=== PATIENT | female | born 1945 | race Caucasian/White ===

== ENCOUNTER 2016-09-05 12:43 | Inpatient (IN) | payer MEDICARE ==
[~2016-09-05] VITALS: Ht 160 cm; Wt 70.5 kg
[2016-09-05 12:46] VITALS: BP 135/75; PULSE 108; RESP 16; TEMP 97.6; O2SAT 93
[2016-09-05] MEDS ORDERED: OXYC-392 PO (12:51)
[2016-09-05] MEDS ORDERED: GABA300C5 PO (12:51)
--- NOTE | 2016-09-05 13:04 | PD ---
HPI Chief Complaint: Back/ Neck Pain or Injury Time Seen by Provider: 13:04 Travel History International Travel<30 days: No Contact w/Intl Traveler<30days: No Traveled to known affect area: No History of Present Illness HPI 71-year-old female coming in with left-sided lower back pain with sciatic symptoms in the left hip and thigh. Patient had a recent MRI showing disc herniation at the L2 level, as well as spinal stenosis throughout the spine. Patient was sent in by Dr. Dee or admission, and possible surgical intervention. Patient states the pain started approximately a week ago. She had her MRI at that time, but has been unable to be seen, and pain is intractable. Patient states she has not had a bowel movement since last Friday. Patient is been taking oxycodone, and gabapentin for pain. Patient denies any other significant medical history. Patient is allergic to lisinopril and sulfa. PFSH Past Medical History Cancer: No Diabetes: No Glaucoma: No Hepatitis: No Hiatal Hernia: No Hypertension: No Thyroid Disease: No Past Surgical History Gynecologic Surgery: Yes (D&C) Social History Alcohol Use: Yes (RARELY) Tobacco Use: No Allergies-Medications (Allergen,Severity, Reaction): Coded Allergies: Sulfa (Verified Allergy, Severe, can't remember, 09/15/09) Lisinopril (Verified Allergy, Unknown, Nausea, Headache, 09/27/15) Reported Meds & Prescriptions Reported Meds & Active Scripts Active Reported Oxycodone (Oxycodone HCl) 5 Mg Tab 5 Mg PO Q4H PRN Gabapentin 300 Mg Cap 300 Mg PO HS Review of Systems Except as stated in HPI: all other systems reviewed are Neg General / Constitutional: No: Fever Eyes: No: Visual changes HENT: No: Headaches Cardiovascular: No: Chest Pain or Discomfort Respiratory: No: Shortness of Breath Gastrointestinal: No: Abdominal Pain Genitourinary: No: Dysuria Musculoskeletal: No: Pain Skin: No Rash Neurologic: No: Weakness Psychiatric: No: Depression Endocrine: No: Polydipsia Hematologic/Lymphatic: No: Easy Bruising Physical Exam Narrative GENERAL: Patient appears in pain but medically stable. SKIN: Warm and dry. Mild pallor. Poor turgor with tenting. HEAD: Atraumatic. Normocephalic. EYES: Pupils equal and round. No scleral icterus. No injection or drainage. ENT: No nasal bleeding or discharge. Mucous membranes pink and dry. Pharynx is normal. Airway is patent.. NECK: Trachea midline. No JVD. Supple nontender. CARDIOVASCULAR: Regular rate and rhythm. RESPIRATORY: No accessory muscle use. Clear to auscultation. Breath sounds equal bilaterally. MUSCULOSKELETAL: Extremities without clubbing, cyanosis, or edema. No obvious deformities. Patient has negative straight leg raise pain on the right and left. Patient has pain with palpation along the left paraspinous and lumbar spine with pain into the sciatic notch. Patient has normal strong dorsi and plantar flexion bilaterally. Deep tendon reflexes are 2+ and equal in the patellar and Achilles tendons. NEUROLOGICAL: Awake and alert. No obvious cranial nerve deficits. Motor grossly within normal limits. Five out of 5 muscle strength in the arms and legs. Normal speech. PSYCHIATRIC: Appropriate mood and affect; insight and judgment normal. Data Data Last Documented VS Vital Signs Date Time Temp Pulse Resp B/P Pulse Ox O2 Delivery O2 Flow Rate FiO2 09/05/16 12:46 97.6 108 16 135/75 93 Room Air Orders Electrocardiogram (09/05/16 13:09) Complete Blood Count With Diff (09/05/16 13:09) Comprehensive Metabolic Panel (09/05/16 13:09) Prothrombin Time / Inr (Pt) (09/05/16 13:09) Act Partial Throm Time (Ptt) (09/05/16 13:09) Chest, Single Ap (09/05/16 13:09) Iv Access Insert/Monitor (09/05/16 13:09) Ecg Monitoring (09/05/16 13:09) Oximetry (09/05/16 13:09) Hydromorphone Pf Inj (Dilaudid Pf Inj) (09/05/16 13:15) Sodium Chlor 0.9% 1000 Ml Inj (Ns 1000 M (09/05/16 13:15) MDM Medical Decision Making Medical Screen Exam Complete: Yes Emergency Medical Condition: Yes Differential Diagnosis Disc herniation. Sciatica. Intractable back pain. Narrative Course Patient is medically stable at time of exam. Labs ordered including CBC, CMP, PT PTT and INR, and patient is made nothing by mouth. Chest x-ray and EKG are ordered. IV access is obtained patient is given 1 mg Dilaudid IV as well as 4 mg Zofran IV. Patient is given 1000 mL's normal saline bolus. 1310 hrs. Call was placed to Dr. Dee to discuss the patient. 1320 hrs., Dr. Dee was in to see the patient. [address] discussed with Dr. Dee, who would like the patient admitted to observation. Patient does not need to be nothing by mouth at this time. Dr. Dee is going to order a repeat MRI, and the consult on the patient for possible neurosurgery. 1330 hrs. call was placed to the hospitalist for admission. 1335 hrs. patient is discussed with Dr. Doherty who will admit the patient to observation. Diagnosis Primary Impression: Left-sided low back pain with left-sided sciatica Qualified Code: M54.42 - Acute left-sided low back pain with left-sided sciatica Admitting Information Admitting Physician Requests: Observation Condition: Stable David Almonte Sep 05, 2016 13:04 David Almonte Sep 05, 2016 13:04
[2016-09-05] MEDS ORDERED: HYDROmorphone HCL PF 1 MG/ML VIAL IV PUSH ONE (13:15)
[2016-09-05] MEDS ORDERED: SODIUM CHLOR 0.9% 1000 ML INJ 1,000 ML IV ONE (13:15)
--- NOTE | 2016-09-05 13:46 | RADRPT ---
EXAM DATE/TIME: 09/05/2016 13:09 [facility] COMPARISON: No previous studies available for comparison. INDICATIONS : Short of breath. MEDICAL HISTORY : None. SURGICAL HISTORY : None. ENCOUNTER: Initial ACUITY: 2 days PAIN SCORE: 8/10 LOCATION: lower chest area. FINDINGS: Portable AP view of the chest demonstrates a normal-sized cardiac silhouette. No effusion, consolidat ion, or pneumothorax is visualized. The bones and soft tissues demonstrate no acute abnormality. CONCLUSION: No acute cardiopulmonary abnormality is identified. Galen Lance MD on September 05, 2016 at 13:45 Board Certified Radiologist. This report was verified electronically.
--- NOTE | 2016-09-05 13:59 | HHI.HP ---
HPI Service [facility] Hospitalists Primary Care Physician Tye Stokes M.D. Admission Diagnosis Left Sciatica/Disc Herniation Chief Complaint: intractable back pain with radidation down the left leg Travel History International Travel<30 Days: No Contact w/Intl Traveler <30 Da: No Traveled to Known Affected Are: No History of Present Illness Ms. Rios is a pleasant 71 y/o WF with GERD who presented to the ER at [facility] [place] with complaints of intractable back pain with radiculopathy down the left leg x 8 days. This began after she lifted her leg to wash her knee in the shower. She was seen by her PCP, Dr. Tye Stokes, as an outpt and was tried on opioid analgesics ([place]), muscle relaxant (Flexeril), and rest without improvement. Medications were changed on 08/30/16 to Oxycodone and Gabapentin and sent for an MRI of the lumbar spine (08/30/16) which reported multilevel spondylosis and degenerative disk disease most severe at the L2 level where a large approximately 1.4 x 1.4cm sequestrated disk fragment is present lying posterior to the left side of the vertebral body in the left paracentral posterolateral left lateral recess region and is suggested to impact the left L2 nerve root int he lateral recess. Patient was sent to Dr. Dee who reportedly sent the pt to the ED for admission and possible surgical intervention. Patient states she has not had a bowel movement since last Friday, 8 days ago. Patient denies any other significant medical history. Review of Systems Constitutional: DENIES: Fever, Chills Eyes: DENIES: Vision loss Ears, nose, mouth, throat: DENIES: Hearing loss Respiratory: DENIES: Cough, Shortness of breath Cardiovascular: DENIES: Chest pain, Palpitations Gastrointestinal: COMPLAINS OF: Constipation, GERD, DENIES: Nausea, Vomiting Genitourinary: DENIES: Urinary frequency, Urinary incontinence Musculoskeletal: COMPLAINS OF: Back pain Neurologic: DENIES: Headache Past Family Social History Past Medical History GERD Denies any CAD/NE, HTN, hyperlipidemia, diabetes, thyroid problems Past Surgical History Arthroscopic right knee surgery D&C Cataract surgery Reported Medications Oxycodone (Oxycodone HCl) 5 Mg Tab 5 Mg PO Q4H PRN Gabapentin 300 Mg Cap 300 Mg PO HS Allergies: Coded Allergies: Sulfa (Verified Allergy, Severe, can't remember, 09/05/16) Lisinopril (Verified Allergy, Unknown, Nausea, Headache, 09/05/16) Family History Noncontributory Social History Denies any alcohol, tobacco or illicit drug use Physical Exam Vital Signs Vital Signs Date Time Temp Pulse Resp B/P Pulse Ox O2 Delivery O2 Flow Rate FiO2 09/05/16 12:46 97.6 108 16 135/75 93 Room Air Physical Exam GENERAL: This is a well-nourished, well-developed patient, in no apparent distress. HEENT: Atraumatic. Normocephalic. No temporal or scalp tenderness. No scleral icterus. Airway patent. NECK: Trachea midline, supple, nontender. CARDIO: Regular. RESP: CTA bilaterally. No wheezes, rales, or rhonchi. ABD: +BS, soft, non-tender, nondistended. EXT: Extremities without clubbing, cyanosis, or edema. Patient has pain in the left thigh to the knee with straight leg raise of the right and left leg. Patient has pain with palpation along the left paraspinous and lumbar spine with pain into the sciatic notch. Patient has normal strong dorsi and plantar flexion bilaterally. Deep tendon reflexes are 2+ and equal in the patellar and Achilles tendons. NEURO: Awake and alert. Motor and sensory grossly within normal limits. Normal speech. Imaging Last Impressions Chest X-Ray 09/05/16 1309 Signed Impressions: Service Date/Time: August 13:09 - CONCLUSION: No acute cardiopulmonary abnormality is identified. Galen Lance MD Septic Shock Reassessment Heart: Regular rate and rhythm Lungs: Clear Skin: Warm Peripheral Pulses: Bounding Right Radial Bounding Left Radial Bounding Right Popliteal Bounding Left Popliteal Bounding Right Dorsalis Pedis Bounding Left Dorsalis Pedis Bounding Right Posterior Tibial Bounding Left Posterior Tibial Capillary Refill: <2 seconds Assessment and Plan Problem List: (1) Intractable back pain Status: Acute Plan: - Pt admitted to the ED on 09/05/16 with intractable back pain with radiculopathy down the left leg x 8 days. This began after she lifted her leg to wash her knee in the shower. - Pt did note have improvement on [place], Flexeril, Oxycodone or Gabapentin - Outpt MRI of the lumbar spine (08/30/16) --> multilevel spondylosis and degenerative disk disease most severe at the L2 level where a large approximately 1.4 x 1.4cm sequestrated disk fragment is present lying posterior to the left side of the vertebral body in the left paracentral posterolateral left lateral recess region and is suggested to impact the left L2 nerve root int he lateral recess. - Patient was sent to Dr. Dee who reportedly sent the pt to the ED for admission and possible surgical intervention. - Dr. Dee has seen the pt and is planned to review the MRI and decide about surgical intervention. - Pt has also been constipated and has not had a bowel movement since last Friday, 8 days ago. - IVF - Pain control PRN, [place] 10/325 and Dilaudid IV - Soma TID - KUB now - Liquid diet and NPO after MN - Check CBC, BMP, PT/INR - Antiemetics PRN - PPI - DVT prophylaxis with SCDs (2) Radiculopathy, lumbar region Status: Acute Plan: - See above. (3) Constipation Status: Acute Plan: - Likely related to opioids and decreased mobility - Check KUB - Stool softeners and may need laxatives based on KUB results. (4) GERD (gastroesophageal reflux disease) Status: Chronic Plan: - PPI Assessment and Plan Patient examined. Assessment and plan formulated with Veronika Joiner PA-C. I agree with the above. L2 disc herniation with left lower ext radiculopathy and severe pain. discussed with dr Dee prn norco, soma, dilaudid ivf and npo after nm check kub. bowel regimen. Physician Certification 2 Midnight Certification Type: Admission for Inpatient Services Order for Inpatient Services The services are ordered in accordance with Medicare regulations or non- Medicare payer requirements, as applicable. In the case of services not specified as inpatient-only, they are appropriately provided as inpatient services in accordance with the 2-midnight benchmark. Estimated LOS (days): 3 3 days is the estimated time the patient will need to remain in the hospital, assuming treatment plan goals are met and no additional complications. Post-Hospital Plan: Not yet determined Veronika Joiner Sep 05, 2016 13:59 Elliot Doherty MD Sep 05, 2016 16:48
[2016-09-05] MEDS ORDERED: ceFAZolin 2 GM PREMIX 50 ML IV ONE (14:00)
[2016-09-05] MEDS ORDERED: ACETAMINOPHEN/HYDROcodone 325 MG/10 MG TAB PO PRN (14:00)
[2016-09-05] MEDS: SODIUM CHLOR 0.9% 1000 ML INJ 1,000 ML IV SCH ×5 (14:00→23:53)
[2016-09-05] MEDS ORDERED: ACETAMINOPHEN 325 MG TAB PO PRN (14:00)
[2016-09-05] MEDS ORDERED: ONDANSETRON HCL 4 MG/2 ML VIAL IV PRN (14:00)
[2016-09-05] MEDS ORDERED: HYDROmorphone HCL PF 1 MG/ML VIAL IV PUSH PRN (14:00)
[2016-09-05] MEDS ORDERED: VANCOMYCIN INJ 1,000 MG in SODIUM CHLOR 0.9% 250 ML INJ 250 ML IV ONE (14:00)
[2016-09-05 14:23] LABS: AUTOMATED NEUTROPHIL # 8.5 TH/MM3 (1.8-7.7); BASOPHIL # 0.1 TH/MM3 (0-0.2); BASOPHIL % 0.6 % (0.0-2.0); EOSINOPHIL # 0.3 TH/MM3 (0-0.4); EOSINOPHIL % 2.2 % (0.0-4.0); HEMATOCRIT 41.6 % (35.0-46.0); HEMO FLAGS DIFF FINAL; LYMPH % 26.2 % (9.0-44.0); LYMPHOCYTE # 3.6 TH/MM3 (1.0-4.8); MEAN CELL VOLUME 89.3 FL (80.0-100.0); MEAN CORPUSCULAR HEMOGLOBIN 30.6 PG (27.0-34.0); MEAN CORPUSCULAR HGB CONC 34.3 % (32.0-36.0); MONO % 9.7 % (0.0-8.0); NEUT % 61.3 % (16.0-70.0); PLATELET COUNT 178 TH/MM3 (150-450); RED BLOOD COUNT 4.66 MIL/MM3 (4.00-5.30); RED CELL DISTRIBUTION WIDTH 12.5 % (11.6-17.2); WHITE BLOOD COUNT 13.8 TH/MM3 (4.0-11.0)
[2016-09-05 14:32] LABS: APTT (PATIENT) 25.5 SEC (24.3-30.1)
--- NOTE | 2016-09-05 14:37 | RADRPT ---
EXAM DATE/TIME: 09/05/2016 14:27 [facility] COMPARISON: CHEST SINGLE AP, September 05, 2016, 13:09. INDICATIONS : Abdomen pain. MEDICAL HISTORY : None. SURGICAL HISTORY : None. ENCOUNTER: Initial ACUITY: 1 week PAIN SCORE: 9/10 LOCATION: Bilateral lower back. FINDINGS: Supine view of the abdomen was performed. The abdominal bowel gas pattern is normal. Multiple gallst ones are identified within the right upper quadrant. There is moderate stool burden noted. The osseou s structures are unremarkable. CONCLUSION: Cholelithiasis. Moderate stool burden. Otherwise unremarkable exam. Carmen Wayne MD on September 05, 2016 at 14:35 Board Certified Radiologist. This report was verified electronically.
[2016-09-05] MEDS: DOCUSATE SODIUM 100 MG CAP PO SCH ×2 (14:45→20:56)
[2016-09-05 14:46] VITALS: BP 145/70; PULSE 93; RESP 16; O2SAT 95
--- NOTE | 2016-09-05 14:47 | PD.CONS ---
[facility] Service Neurosurgery Consult Requested By [facility] Reason for Consult Intractable back pain with left radiculopathy Primary Care Physician Tye stokes History of Present Illness This is a 71 y/o female with GERD who presented to [facility] with intractable back pain with left radiculopathy down the left leg, progressively worse for 8 days. Pain began after she lifted her leg to wash her knee in the shower. She was seen by her PCP, Dr. Tye Stokes, was placed on analgesics ([place]), muscle relaxant (Flexeril), and rest without improvement. Her pain was getting worse. Her medications were changed on 08/30/16 to Oxycodone and Gabapentin and sent for an MRI of the lumbar spine (08/30/16) which reported multilevel spondylosis and degenerative disk disease with a large approximately 1.4 x 1.4cm sequestrated disk fragment at L2-3compressing the left L2 nerve root int he lateral recess. She has not had a bowel movement since last Friday, 8 days ago. Reports tingling and numbness, unable to ambulate due to her severe pain. Intermittent urinary incontinence. NeuroSurgical consultation was requested Review of Systems Constitutional: DENIES: Fever, Chills Eyes: DENIES: Vision loss Ears, nose, mouth, throat: DENIES: Hearing loss Respiratory: DENIES: Cough, Shortness of breath Cardiovascular: DENIES: Chest pain, Palpitations Gastrointestinal: COMPLAINS OF: Constipation, GERD, DENIES: Nausea, Vomiting Genitourinary: DENIES: Urinary frequency, Urinary incontinence Musculoskeletal: COMPLAINS OF: Back pain Neurologic: DENIES: Headache Past Family Social History Allergies: Coded Allergies: Sulfa (Verified Allergy, Severe, can't remember, 09/05/16) Lisinopril (Verified Allergy, Unknown, Nausea, Headache, 09/05/16) Past Medical History GERD Denies any CAD/DE, HTN, hyperlipidemia, diabetes, thyroid problems Past Surgical History Arthroscopic right knee surgery D&C Cataract surgery Reported Medications Oxycodone (Oxycodone HCl) 5 Mg Tab 5 Mg PO Q4H PRN Gabapentin 300 Mg Cap 300 Mg PO HS Active Ordered Medications Current Medications Hydromorphone HCl 1 mg 1 mg ONCE ONCE IV PUSH ; Start 09/05/16 at 13:15; Stop 09/05/16 at 13:16; Status DC Sodium Chloride (NS 1000 ml Inj) 1,000 ml @ 999 mls/hr BOLUS ONCE IV ; Start 09/05/16 at 13:15; Stop 09/05/16 at 14:15; Status DC Hydromorphone HCl 1 mg 1 mg Q2HR PRN IV PUSH p; Start 09/05/16 at 14:00; Stop 09/05/16 at 14:01; Status DC Sodium Chloride 1,000 ml @ 100 mls/hr Q10H IV ; Start 09/05/16 at 13:53 Cefazolin Sodium/ Dextrose 50 ml @ 150 mls/hr ONCE ONCE IV ; Start 09/05/16 at 14:00; Stop 09/05/16 at 14:19; Status DC Vancomycin HCl/ Sodium Chloride (Vancomycin Inj/ NS 250 ml Inj) 250 ml @ 250 mls/hr ONCE ONCE IV ; Start 09/05/16 at 14:00; Stop 09/05/16 at 14:59 Chlorhexidine Gluconate (Hibiclens 4% Top Soln) 1 applic HS TOP ; Start at 21:00; Stop 09/06/16 at 21:01 Hydromorphone HCl (Dilaudid Pf Inj) 1 mg Q2HR PRN IV PUSH pain 7-10; Start 08/10 at 14:00 Acetaminophen/ Hydrocodone Bitart ([place] 10-325 Mg) 1 tab Q4H PRN PO pain 3-6; Start 09/05/16 at 14:00 Docusate Sodium 100 mg 100 mg BID PO ; Start 09/05/16 at 14:00 Sodium Chloride (NS 1000 ml Inj) 1,000 ml @ 84 mls/hr [id number] IV ; Start at 14:00 Acetaminophen (Tylenol) 650 mg Q4H PRN PO fever ; Start 09/05/16 at 14:00 Ondansetron HCl (Zofran Inj) 4 mg Q6H PRN IV nausea; Start 09/05/16 at 14:00 Carisoprodol (Soma) 350 mg Q8HR PO ; Start 09/05/16 at 15:00 Family History Noncontributory Social History Denies any alcohol, tobacco or illicit drug use Physical Exam Vital Signs Vital Signs Date Time Temp Pulse Resp B/P Pulse Ox O2 Delivery O2 Flow Rate FiO2 09/05/16 12:46 97.6 108 16 135/75 93 Room Air Physical Exam MS Rios is alert, awake and oriented to time, place and person. Speech is fluent. Higher cognitive functions are normal. Cranial nerve examination demonstrates the pupils to be equal, round, and reactive to light. Extra-ocular movements are intact. Facial motor and sensory function are normal and symmetrical. Gross hearing is intact, bilaterally. The uvula is midline and elevates symmetrically with the soft palate. Sternocleidomastoid and trapezius muscles have normal and symmetrical strength. Other cranial nerves are intact. Neck is soft and supple. Cervical spine has a full range of motion in anterior flexion, extension, lateral bending, and rotation without pain. There is no tenderness to palpation to the spinous processes or paraspinal muscles. Muscle testing reveals normal bulk and tone overall without rigidity, spasticity , fasciculations, or atrophy. Muscle strength is 5/5 in all muscle groups of both upper extremities including deltoid, biceps, triceps, brachioradialis, wrist extension and system safety engineer. In the lower extremities, strength is 3/5 in iliopsoas , 4/5 quadriceps, 5/5 hamstrings, plantar flexion, dorsiflexion, and extensor hallicus longus with give away due to pain. Sensory examination is intact to light touch and sharp/dull discrimination in both upper extremities, and decreased in left L3, L4 dermatome Deep tendon reflexes are 2+ and symmetrical in the biceps, triceps, and brachioradialis, bilaterally, in the upper extremities. In the lower extremities , the patellar and Achilles are 2+, bilaterally. There is a bilateral plantar flexion response. Hoffmanns sign is negative. There is no clonus or other abnormal reflexes noted. Cerebellar examination is intact to [id number] test, rapid rhythmic alternating motion. There is no dysmetria, dysdiadochokinesia, truncal ataxia, or tremor. Laboratory Laboratory Tests Test 09/05/16 14:10 White Blood Count 13.8 Red Blood Count 4.66 Hemoglobin 14.3 Hematocrit 41.6 Mean Corpuscular Volume 89.3 Mean Corpuscular Hemoglobin 30.6 Mean Corpuscular Hemoglobin 34.3 Concent Red Cell Distribution Width 12.5 Platelet Count 178 Mean Platelet Volume 6.9 Neutrophils (%) (Auto) 61.3 Lymphocytes (%) (Auto) 26.2 Monocytes (%) (Auto) 9.7 Eosinophils (%) (Auto) 2.2 Basophils (%) (Auto) 0.6 Neutrophils # (Auto) 8.5 Lymphocytes # (Auto) 3.6 Monocytes # (Auto) 1.3 Eosinophils # (Auto) 0.3 Basophils # (Auto) 0.1 CBC Comment DIFF FINAL Differential Comment Prothrombin Time 11.0 Prothromb Time International 1.0 Ratio Activated Partial 25.5 Thromboplast Time Result Diagram: 09/05/16 1410 Imaging Last Impressions Chest X-Ray 09/05/16 1309 Signed Impressions: Service Date/Time: August 13:09 - CONCLUSION: No acute cardiopulmonary abnormality is identified. Galen Lance MD Attending Statement Neuro. I have reviewed her clinical and radiological findings. Start neuro checks in a serial fashion.I have discussed the alternative methods of treatment including continuing conservative management, pain management by an interventional crayon painter, or a surgical decompression as a last resort. She failed to improve with conservative treatment and given the severity of her pain and severity of the neural compression, she is unlike to respond favorably to pain management. I have offered her the possibility of a referral to an interventional pain specialist, versus a surgical decompression via a left L2-3 hemilaminectomy and microdiscectomy. In my opinion, a surgical decompression is reasonable and medically indicated as this minimally invasive procedure can produce significant relief of his pain. Using the patients radiologic studies, anatomical model(s), and hand-drawn diagrams, we have discussed the details including the [id number] procedure, its indications, alternatives, risks, and potential complications. Risks and potential complications include, but are not limited to, infection, blood loss, CSF leak, partial or complete loss of sight in one or both eyes, paresis, paralysis, permanent pain, hoarseness or difficulty swallowing, loss of bowel or bladder function, complications from anesthesia, blood clot, stroke, myocardial infarction, or even . I adviced Ms Rios that before reaching a decision in regards to surgery, she should consider the alternatives, including the possibility of no treatment. Respiratory. Aggressive pulmonary toilette, nasotracheal suction, and breathing treatments with nebulizers. PT evaluation Nutrition. NPO Renal. monitor closely urine output, BUN and creatinine Endocrine. Monitor serial Acu checks and SSI as needed in detail ID monitor for signs of infection Protonix for stress ulcer prophylaxis Maxi hosjaden and SCD's for DVT prophylaxis Heber Dee MD Sep 05, 2016 14:47
[2016-09-05 14:55] LABS: ALKALINE PHOSPHATASE 74 U/L (45-117); ALT (GPT) 33 U/L (10-53); ANION GAP 7 MEQ/L (5-15); AST (GOT) 31 U/L (15-37); BICARBONATE 28.8 MEQ/L (21.0-32.0); BLOOD UREA NITROGEN 17 MG/DL (7-18); CHLORIDE 101 MEQ/L (98-107); GLOMERULAR FILTRATION RATE 76 ML/MIN (>89); SODIUM (NA) 137 MEQ/L (136-145); TOTAL BILIRUBIN ADULT 1.2 MG/DL (0.2-1.0)
[2016-09-05] MEDS: CARISOPRODOL 350 MG TAB PO SCH ×2 (15:00→20:57)
[2016-09-05] MEDS ORDERED: PANTOPRAZOLE SODIUM 40 MG VIAL IV PUSH SCH (15:00)
[2016-09-05 15:11] LABS: POTASSIUM 4.1 MEQ/L (3.5-5.1)
--- NOTE | 2016-09-05 15:49 | RADRPT ---
EXAM DATE/TIME: 09/05/2016 15:13 [facility] COMPARISON: No previous studies available for comparison. INDICATIONS : Pain. MEDICAL HISTORY : None. SURGICAL HISTORY : Right knee. Cataracts. ENCOUNTER: Subsequent ACUITY: 1 week PAIN SCORE: 8/10 LOCATION: Lower back. TECHNIQUE: Multiplanar multisequence MRI of the lumbar spine was performed without contrast. FINDINGS: The most caudal appearing lumbar vertebra is numbered as L5. A the lumbar spine demonstrates degenerative disc changes seen most significantly at the level of L2/ L3 where there is significant disc space narrowing, posterior broad-based disc protrusion and grade 1 retrolisthesis of L2 on L3. Also seen at this level is an ovoid mass identified within the posterior left spinal canal measuring 1.6 cm craniocaudally by 1.0 cm anterior posterior right 7 mm transverse ly. This mass is closely adherent to the adjacent vertebral body without evidence of osseous destruct ion and abuts but does not occlude the left neuroforamina. The mass appears epicentered adjacent to t he L2 basivertebral veins. The mass displaces the adjacent spinal cord to the right.. CONCLUSION: Degenerative disc changes seen at the level of L2/L3 and adjacent posterior extradura l mass just posterior and closely adherent to the L2 vertebral body. Given the adjacent degenerative disc changes this may represent an area of focal extruded disc versus possible epidural hematoma or s olid .Consider further evaluation of the lumbar spine with contrast to evaluate for mass enhancement. Carmen Wayne MD on September 05, 2016 at 15:39 Board Certified Radiologist. This report was verified electronically.
[2016-09-05 16:11] VITALS: BP 181/76; PULSE 89; RESP 18; TEMP 97.3; O2SAT 94
[2016-09-05] MEDS: HYDROmorphone HCL PF 1 MG/ML VIAL IV PUSH PRN ×3 (16:18→23:03)
[2016-09-05] MEDS ORDERED: cloNIDine HCL 0.1 MG TAB PO PRN (17:00)
[2016-09-05] MEDS ORDERED: LACTULOSE SYRUP 20 GM/30 ML CUP PO ONE (17:00)
[2016-09-05] MEDS: LACTULOSE SYRUP 20 GM/30 ML CUP PO SCH ×2 (17:34→20:44)
[2016-09-05 19:32] VITALS: BP 185/80; PULSE 98; RESP 18; TEMP 98; O2SAT 93
[2016-09-05] MEDS: CHLORHEXIDINE GLUCONATE 4% SOLN 120 ML BTL TOP SCH ×2 (20:45→20:57)
[2016-09-06] MEDS: SODIUM CHLOR 0.9% 1000 ML INJ 1,000 ML IV SCH ×4 (00:21→10:00)
[2016-09-06 01:57] VITALS: BP 167/64; PULSE 99; RESP 20; TEMP 97.8; O2SAT 90
[2016-09-06] MEDS: HYDROmorphone HCL PF 1 MG/ML VIAL IV PUSH PRN ×2 (04:24→08:10)
[2016-09-06] MEDS: CARISOPRODOL 350 MG TAB PO SCH ×2 (05:02→14:00)
[2016-09-06 06:41] VITALS: BP 193/86; PULSE 88; RESP 20; TEMP 98.7; O2SAT 97
[2016-09-06 08:00] VITALS: BP 137/78; PULSE 97; RESP 20; TEMP 98; O2SAT 99
[2016-09-06] MEDS: DOCUSATE SODIUM 100 MG CAP PO SCH ×2 (08:53→20:45)
[2016-09-06] MEDS: LACTULOSE SYRUP 20 GM/30 ML CUP PO SCH ×4 (08:53→20:45)
[2016-09-06] MEDS ORDERED: BUPIVACAINE HCL PF 0.5% 30 ML VIAL ONE (09:26)
[2016-09-06] MEDS ORDERED: THROMBIN (TOPICAL) 5,000 UNIT VIAL ONE (09:26)
[2016-09-06] MEDS ORDERED: methylPREDNISolone ACETATE 40 MG/ML VIAL ONE (09:26)
[2016-09-06] MEDS ORDERED: GELFOAM SIZE 100 ONE (09:26)
[2016-09-06] MEDS ORDERED: GENTAMICIN SULFATE 80 MG/2 ML VIAL ONE (09:26)
--- NOTE | 2016-09-06 09:44 | HHI.PR ---
Subjective Remarks Pt reports that her pain is better controlled today. She states that she did not take the Lactulose yesterday because she was worried about having to have a BM in the operating room. She did take the stool softeners yesterday. +Flatus. Objective Vitals Vital Signs Date Time Temp Pulse Resp B/P Pulse Ox O2 Delivery O2 Flow Rate FiO2 09/06/16 08:00 98.0 97 20 137/78 99 09/06/16 06:41 98.7 88 20 193/86 97 09/06/16 05:01 14 09/06/16 01:57 97.8 99 20 167/64 90 09/05/16 19:32 98.0 98 18 185/80 93 09/05/16 16:11 97.3 89 18 181/76 94 09/05/16 14:46 93 16 145/70 95 Room Air 09/05/16 12:46 97.6 108 16 135/75 93 Room Air 09/05/16 09/05/16 09/06/16 14:59 22:59 06:59 Intake Total 240 ml Balance 240 ml Intake Oral 240 ml # Voids 3 Result Diagram: 09/05/16 1410 09/05/16 1410 Other Results Laboratory Tests Test 09/05/16 14:10 White Blood Count 13.8 TH/MM3 Red Blood Count 4.66 MIL/MM3 Hemoglobin 14.3 GM/DL Hematocrit 41.6 % Mean Corpuscular Volume 89.3 FL Mean Corpuscular Hemoglobin 30.6 PG Mean Corpuscular Hemoglobin 34.3 % Concent Red Cell Distribution Width 12.5 % Platelet Count 178 TH/MM3 Mean Platelet Volume 6.9 FL Neutrophils (%) (Auto) 61.3 % Lymphocytes (%) (Auto) 26.2 % Monocytes (%) (Auto) 9.7 % Eosinophils (%) (Auto) 2.2 % Basophils (%) (Auto) 0.6 % Neutrophils # (Auto) 8.5 TH/MM3 Lymphocytes # (Auto) 3.6 TH/MM3 Monocytes # (Auto) 1.3 TH/MM3 Eosinophils # (Auto) 0.3 TH/MM3 Basophils # (Auto) 0.1 TH/MM3 CBC Comment DIFF FINAL Differential Comment Prothrombin Time 11.0 SEC Prothromb Time International 1.0 RATIO Ratio Activated Partial 25.5 SEC Thromboplast Time Sodium Level 137 MEQ/L Potassium Level 4.1 MEQ/L Chloride Level 101 MEQ/L Carbon Dioxide Level 28.8 MEQ/L Anion Gap 7 MEQ/L Blood Urea Nitrogen 17 MG/DL Creatinine 0.75 MG/DL Estimat Glomerular Filtration 76 ML/MIN Rate Random Glucose 105 MG/DL Calcium Level 8.4 MG/DL Total Bilirubin 1.2 MG/DL Aspartate Amino Transf 31 U/L (AST/SGOT) Alanine Aminotransferase 33 U/L (ALT/SGPT) Alkaline Phosphatase 74 U/L Total Protein 6.6 GM/DL Albumin 3.3 GM/DL Imaging Last Impressions Chest X-Ray 09/05/16 1309 Signed Impressions: Service Date/Time: August 13:09 - CONCLUSION: No acute cardiopulmonary abnormality is identified. Galen Lance MD Lumbar Spine MRI 09/05/16 0000 Signed Impressions: Service Date/Time: August 15:13 - CONCLUSION: Degenerative disc changes seen at the level of L2/L3 and adjacent posterior extradural mass just posterior and closely adherent to the L2 vertebral body. Given the adjacent degenerative disc changes this may represent an area of focal extruded disc versus possible epidural hematoma or solid .Consider further evaluation of the lumbar spine with contrast to evaluate for mass enhancement. Carmen Wayne MD Abdomen X-Ray 09/05/16 0000 Signed Impressions: Service Date/Time: August 14:27 - CONCLUSION: Cholelithiasis. Moderate stool burden. Otherwise unremarkable exam. Carmen Wayne MD Objective Remarks General: NAD, AAOx3 Chest: CTA bilaterally Cardiac: Regular Abd: +BS, soft ND/NT Ext: No edema A/P Problem List: (1) Intractable back pain Status: Acute Plan: - Pt admitted to the ED on 09/05/16 with intractable back pain with radiculopathy down the left leg x 8 days. This began after she lifted her leg to wash her knee in the shower. - Pt did note have improvement on [place], Flexeril, Oxycodone or Gabapentin - Outpt MRI of the lumbar spine (08/30/16) --> multilevel spondylosis and degenerative disk disease most severe at the L2 level where a large approximately 1.4 x 1.4cm sequestrated disk fragment is present lying posterior to the left side of the vertebral body in the left paracentral posterolateral left lateral recess region and is suggested to impact the left L2 nerve root int he lateral recess. - Patient was sent to Dr. Dee who reportedly sent the pt to the ED for admission and possible surgical intervention. - Repeat MRI Lumbar spine (09/05/16) --> Degenerative disc changes seen at the level of L2/L3 and adjacent posterior extradural mass just posterior and closely adherent to the L2 vertebral body. Given the adjacent degenerative disc changes this may represent an area of focal extruded disc versus possible epidural hematoma or solid - Pt is planned for the OR this afternoon with Dr. Dee - BP has been periodically elevated likely secondary to pain - Clonidine PRN - IVF - Pain control PRN, Jefferson 10/325 and Dilaudid IV - Constipation precautions. - Soma TID - Antiemetics PRN - PPI - DVT prophylaxis with SCDs (2) Radiculopathy, lumbar region Status: Acute Plan: - See above. (3) Constipation Status: Acute Plan: - Pt has been constipated and has not had a bowel movement since last Friday , 8 days ago. - Likely related to opioids and decreased mobility - KUB (09/05/16) --> Moderate stool burden - Stool softeners BID - Lactulose, pt refused yesterday because she was concerned about having a BM in the OR but is willing to take the laxative post-operative. (4) GERD (gastroesophageal reflux disease) Status: Chronic Plan: - PPI Assessment and Plan Patient examined. Assessment and plan formulated with Veronika Joiner PA-C. I agree with the above. L2-3 laminectomy. seen in pacu. stable but sedated. Veronika Joiner Sep 06, 2016 09:44 Elliot Doherty MD Sep 06, 2016 15:07
[2016-09-06] MEDS: ceFAZolin 2 GM PREMIX 50 ML IV SCH ×4 (11:31→20:47)
[2016-09-06] MEDS ORDERED: NEOSTIGMINE 3 MG/3 ML SYR IV ONE (12:00)
[2016-09-06] MEDS ORDERED: ePHEDrine/NS 50 MG/5 ML SYR IV ONE (12:00)
[2016-09-06] MEDS ORDERED: ONDANSETRON HCL 4 MG/2 ML VIAL IV PUSH ONE (12:00)
[2016-09-06] MEDS ORDERED: SODIUM CHLOR 0.9% 1000 ML INJ 1,000 ML IV ONE (12:00)
[2016-09-06] MEDS ORDERED: PROPOFOL 200 MG/20 ML AMP IV ONE (12:00)
[2016-09-06] MEDS: VANCOMYCIN INJ 1,000 MG in SODIUM CHLOR 0.9% 250 ML INJ 250 ML IV SCH ×2 (12:00→12:05)
[2016-09-06] MEDS ORDERED: PHENYLEPH/NS 1000 MCG/10 ML SYR IV ONE (12:00)
[2016-09-06] MEDS ORDERED: ACETAMINOPHEN 1000 MG/100 ML VIAL IV ONE (12:05)
[2016-09-06] MEDS ORDERED: fentaNYL CITRATE 250 MCG/5 ML AMP ONE (12:06)
[2016-09-06] MEDS ORDERED: MIDAZOLAM HCL 2 MG/2 ML VIAL ONE (12:06)
[2016-09-06] MEDS ORDERED: KETAMINE HCL 500 MG/5 ML VIAL ONE (12:06)
[2016-09-06] MEDS ORDERED: DEXAMETHASONE SOD PHOS 4 MG/ML VIAL ONE (12:06)
[2016-09-06] MEDS ORDERED: FAMOTIDINE 20 MG/2 ML VIAL ONE (12:07)
--- NOTE | 2016-09-06 14:21 | RADRPT ---
EXAM DATE/TIME: 09/06/2016 12:16 [facility] COMPARISON: FLUOROSCOPY PORTABLE UP TO 1HR, September 06, 2016, 0:00. INDICATIONS : L2-3 Laminectomy. MEDICAL HISTORY : None. SURGICAL HISTORY : None. ENCOUNTER: Subsequent ACUITY: 2 days PAIN SCORE: Non-responsive. LOCATION: Lumbar spine. FINDINGS: A single lateral view of the lumbar spine was performed. There is normal alignment of the vertebral bodies without evidence of subluxation. Vertebral body height and disc space height is maintained. T here is a marker overlying the posterior spinous process at the level of L2. CONCLUSION: Unremarkable lateral view with a marker overlying the L2 spinous process. Carmen Wayne MD on September 06, 2016 at 14:19 Board Certified Radiologist. This report was verified electronically.
[2016-09-06] MEDS ORDERED: ACETAMINOPHEN 325 MG TAB PO PRN (15:15)
[2016-09-06] MEDS ORDERED: SODIUM CHLORIDE 0.9% FLUSH 5 ML FLUSH IVF PRN (15:15)
[2016-09-06] MEDS ORDERED: MORPHINE SULFATE 4 MG/ML INJ IV PUSH PRN ×2 (15:15)
[2016-09-06] MEDS ORDERED: KETOROLAC TROMETHAMINE 60 MG/2 ML (IM) VIAL IM PRN (15:15)
[2016-09-06] MEDS ORDERED: ACETAMINOPHEN/HYDROcodone 325 MG/10 MG TAB PO PRN ×2 (15:15)
[2016-09-06] MEDS ORDERED: KETOROLAC TROMETHAMINE 30 MG/ML (IVP) VIAL ONE (15:32)
[2016-09-06] MEDS: NS + KCL 20 MEQ INJ 1,000 ML IV SCH (15:36)
[2016-09-06] MEDS ORDERED: DO NOT ADM ANY ANTICOAGULANT DRUGS XX PRN (16:00)
[2016-09-06 16:30] VITALS: BP 178/85; PULSE 123; RESP 18; TEMP 98.1; O2SAT 97
--- NOTE | 2016-09-06 18:24 | EKG ---
Date Performed: 09/05/2016 Time Performed: 14:50:55 PTAGE: 71 years EKG: Sinus rhythm NORMAL ECG PREVIOUS TRACING : 09/04/2009 11.55 Since previous tracing, no significant change noted DOCTOR: Kavitha Gaines Interpretating Date/Time 09/06/2016 18:22:35
[2016-09-06 20:05] VITALS: BP 144/75; PULSE 111; RESP 16; TEMP 97.6; O2SAT 97
[2016-09-06] MEDS: SODIUM CHLORIDE 0.9% FLUSH 5 ML FLUSH IVF SCH (20:47)
[2016-09-06] MEDS: CHLORHEXIDINE GLUCONATE 4% SOLN 120 ML BTL TOP SCH ×2 (21:00)
[2016-09-07] VITALS: BP 141/63; PULSE 101; RESP 20; TEMP 97; O2SAT 97
[2016-09-07] MEDS: CARISOPRODOL 350 MG TAB PO SCH ×2 (00:14→06:39)
[2016-09-07] MEDS: KETOROLAC TROMETHAMINE 60 MG/2 ML (IM) VIAL IM SCH ×3 (00:17→08:36)
[2016-09-07] MEDS: ceFAZolin 2 GM PREMIX 50 ML IV SCH ×2 (04:46→12:07)
[2016-09-07] MEDS: NS + KCL 20 MEQ INJ 1,000 ML IV SCH (04:48)
[2016-09-07 07:30] LABS: AUTOMATED NEUTROPHIL # 11.6 TH/MM3 (1.8-7.7); BASOPHIL % 0.1 % (0.0-2.0); HEMATOCRIT 34.2 % (35.0-46.0); HEMO FLAGS DIFF FINAL; LYMPH % 13.7 % (9.0-44.0); MEAN CELL VOLUME 89.4 FL (80.0-100.0); MEAN CORPUSCULAR HEMOGLOBIN 30.9 PG (27.0-34.0); MEAN CORPUSCULAR HGB CONC 34.6 % (32.0-36.0); MONO % 7.1 % (0.0-8.0); NEUT % 79.1 % (16.0-70.0); PLATELET COUNT 140 TH/MM3 (150-450); RED BLOOD COUNT 3.83 MIL/MM3 (4.00-5.30); RED CELL DISTRIBUTION WIDTH 12.4 % (11.6-17.2); WHITE BLOOD COUNT 14.7 TH/MM3 (4.0-11.0)
[2016-09-07 07:51] LABS: BICARBONATE 25.7 MEQ/L (21.0-32.0); POTASSIUM 4.2 MEQ/L (3.5-5.1)
[2016-09-07 08:00] VITALS: BP_SYST 138; BP_SYST 146; BP_DIAS 77; BP_DIAS 79; PULSE 113; PULSE 96; RESP 19; RESP 20; TEMP 96.9; TEMP 99.9; O2SAT 95; O2SAT 99
[2016-09-07] MEDS: LACTULOSE SYRUP 20 GM/30 ML CUP PO SCH (08:40)
[2016-09-07] MEDS: DOCUSATE SODIUM 100 MG CAP PO SCH (08:40)
[2016-09-07] MEDS: SODIUM CHLORIDE 0.9% FLUSH 5 ML FLUSH IVF SCH (08:40)
[2016-09-07] MEDS ORDERED: PANTOPRAZOLE SOD 40 MG DELAYED RELEASE TAB PO SCH (09:00)
--- NOTE | 2016-09-07 09:55 | HHI.NSPN ---
History Chief Complaint: mild incisional pain. Interval History This is a 71 y/o female with GERD who presented to [facility] with intractable back pain with left radiculopathy down the left leg, progressively worse for 8 days. Pain began after she lifted her leg to wash her knee in the shower. She was seen by her PCP, Dr. Tye Stokes, was placed on analgesics ([place]), muscle relaxant (Flexeril), and rest without improvement. Her pain was getting worse. Her medications were changed on 08/30/16 to Oxycodone and Gabapentin and sent for an MRI of the lumbar spine (08/30/16) which reported multilevel spondylosis and degenerative disk disease with a large approximately 1.4 x 1.4cm sequestrated disk fragment at L2-3compressing the left L2 nerve root int he lateral recess. She has not had a bowel movement since last Friday, 8 days ago. Reports tingling and numbness, unable to ambulate due to her severe pain. Intermittent urinary incontinence. NeuroSurgical consultation was requested 09/07/16: Pt awake and alert. Sitting up in chair. Mild incisional pain. No radiculopathy or paresthesias in LEs. She is ambulating well. Pt wants to go home. Review of Systems General: Negative for: fever, chills, insomnia Respiratory: Negative for: shortness of breath, cough, sputum Cardiovascular: Negative for: chest pain Gastrointestinal: Negative for: nausea, vomitting, diarrhea, constipation Exam Results Vital Signs Date Time Temp Pulse Resp B/P Pulse Ox O2 Delivery O2 Flow Rate FiO2 09/07/16 08:00 96.9 96 19 146/77 99 09/06/16 16:15 Nasal Cannula 2 Intake and Output 09/06/16 09/06/16 09/07/16 08:00 16:00 00:00 Intake Total 240 ml 1000 ml 1000 ml Output Total 850 ml 1050 ml Balance 240 ml 150 ml -50 ml Physical Examination Resp: CTA bilaterally Heart: NSR no murmurs Abd: Soft positive bs Skin: No cyanosis or erythema. RN placed new bandage. Muscle: Moves all 4 extremities with good strength. Neuro: Pt awake and alert. Follows commands well. Speech clear and appropriate. Lab, Micro, Other Results Laboratory Tests Test 09/07/16 07:00 White Blood Count 14.7 TH/MM3 Red Blood Count 3.83 MIL/MM3 Hemoglobin 11.8 GM/DL Hematocrit 34.2 % Mean Corpuscular Volume 89.4 FL Mean Corpuscular Hemoglobin 30.9 PG Mean Corpuscular Hemoglobin 34.6 % Concent Red Cell Distribution Width 12.4 % Platelet Count 140 TH/MM3 Mean Platelet Volume 7.2 FL Neutrophils (%) (Auto) 79.1 % Lymphocytes (%) (Auto) 13.7 % Monocytes (%) (Auto) 7.1 % Eosinophils (%) (Auto) 0.0 % Basophils (%) (Auto) 0.1 % Neutrophils # (Auto) 11.6 TH/MM3 Lymphocytes # (Auto) 2.0 TH/MM3 Monocytes # (Auto) 1.1 TH/MM3 Eosinophils # (Auto) 0.0 TH/MM3 Basophils # (Auto) 0.0 TH/MM3 CBC Comment DIFF FINAL Differential Comment Sodium Level 140 MEQ/L Potassium Level 4.2 MEQ/L Chloride Level 107 MEQ/L Carbon Dioxide Level 25.7 MEQ/L Anion Gap 7 MEQ/L Blood Urea Nitrogen 10 MG/DL Creatinine 0.66 MG/DL Estimat Glomerular Filtration 89 ML/MIN Rate Random Glucose 141 MG/DL Calcium Level 8.4 MG/DL Magnesium Level 2.0 MG/DL 09/06/16 09/06/16 09/07/16 15:00 23:00 07:00 Intake Total 1240 ml 1000 ml 480 ml Output Total 850 ml 1050 ml Balance 390 ml -50 ml 480 ml Intake Oral 240 ml 600 ml 480 ml IV Total 400 ml Other 1000 ml Output Urine Total 1050 ml Estimated Blood Loss 50 ml Other 800 ml # Voids 2 # Bowel Movements 2 Medical Decision Making Impression and Plan A: 71 y/o FM s/p lumbar laminectomy with microdiscectomy P: D/C Carrasco catheter Discussed pts questions with her in detail. Discharge pt home if voiding well. Win Hollis Sep 07, 2016 09:55
[2016-09-07 11:05] VITALS: O2SAT 98
--- NOTE | 2016-09-07 11:18 | PD.OP ---
Operative Report Date of Surgery: Sep 06, 2016 Preoperative Diagnosis: L2-3 disk herniation Postoperative Diagnosis: L2-3 disk herniation Procedure: L2-3 left hemilaminectomy and microdiscectomy Anesthesia: general Surgeon: Heber Dee Water Plumber(s): Ayanna Schofield Operation and Findings: INDICATIONS FOR THE SURGICAL PROCEDURE Ms Rios is a 71 year-old female who presented with intractable back pain and clinical evidence of left lower extremity radiculopathy. She was found to have a disk herniation significant stenosis with significant mass effect on the neural structures which correlated with the clinical symptoms. The patient has failed maximum nonsurgical management including multiple modalities of conservative treatment as well as pain management interventions by an interventional pain specialist. A surgical decompression were indicated as a last resort. The [id number] details of the procedure, indications, alternatives, risks and potential complications were fully discussed with the patient. The patient fully understood. All the questions were answered. No guarantees were given. The patient voiced requesting the procedure and signes informed consents. The patient was offered the alternative of delaying the procedure and continuing with nonsurgical management. DETAILS OF THE SURGICAL PROCEDURE After the induction of general anesthesia, endotracheal intubation was performed. A Carrasco catheter, bilateral LEONIDES hose and sequential compression devices were placed and kept throughout the procedure. The patient was positioned prone on a Louis table over a Fernando frame. All pressure points were carefully padded with eggcrate mattress. The eyes were tapped shut after ointment was applied by the anesthesiologist to prevent corneal abrasion. A Jj hugger was placed over the exposed lower body to maintain control of the core body temperature. The lower lumbar region was prepped and draped in the usual sterile fashion. A spinal needle was placed for localization and an x- ray performed with a C-arm. A skin incision was made in the midline over the spinous processes L2-L3 with a #10 blade. Small subcutaneous bleeders were controlled with a bipolar and the dissection was carried out through the lumbar fascia exposing the spinous processes. A subperiosteal dissection was performed with a Quintanilla elevator and a Bovie over the L2-L3 spinous process lamina and facets. A microdiscectomy self- retaining retractor was placed on the incision and an x-ray was obtained with an instrument placed underneath the lamina. At this point in the procedure the operating microscope was draped in the usual sterile fashion and brought to the field. The rest of the surgical procedure was performed using microsurgical dissection technique with exception of the closure. Once the level was confirmed, a decompressive laminectomy was performed at L2- L3 on the left using the TPS drill with an AM-8 drill bit. A medial facetectomy was performed and the superior free border of the ligamentum flavum was dissected with a ligament dissector and removed with a thin footplate 2 mm Kerrison The medial facetectomy allowed me to expose the S1 nerve root, which was identified and followed towards its exit in the foramen. Epidural veins located laterally to the dural sac were coagulated with a bipolar and incised with microscissors. Gentle medial retraction of the dural sac allowed inspection of the disc space. The patient had a disc herniation, causing mass effect over the exiting nerve root. The annulus fibrosus of the disc was coagulated with the bipolar and incised with an 11 blade. The extruded disc was carefully dissected from the surrounding tissue and removed with pituitary forceps. Then, a microdiscectomy was carried out in the standard fashion using straight and up-biting pituitary forceps. A good decompression of the dural sac and nerve root was achieved. The exit of the nerve root was inspected for residual disc fragments and hemostasis was secured with the bipolar. The incision was irrigated with a large amount of saline solution. A Valsalva maneuver failed to show any cerebrospinal fluid leak or bleeding. The decompression was assessed again and found to be satisfactory. The incision was then closed in layers. The fascia was closed with 0 Vicryl sutures in an interrupted fashion. The superficial fascia was closed with 0 Vicryl sutures. The fascia was infiltrated with 0.5% Marcaine with epinephrine 1:100,000 dilution. The subcutaneous tissue was irrigated then closed with 0 Vicryl and 3 -0 Vicryl. The skin was closed with 4-0 running subcuticular Vicryl. Dermabond was applied to the skin. A sterile dressing was applied. At the end of the procedure, the sponge, needle and instrument counts were all correct. Estimated blood loss was less than 60 cc. No blood transfusion was given. No intraoperative complications occurred. The patient received prophylactic antibiotics. The patient was then extubated and transferred to the recovery room in stable condition. Heber Dee MD Sep 07, 2016 11:18
--- NOTE | 2016-09-07 11:43 | HHI.PR ---
Subjective Remarks doing great in chair Objective Vitals heart reg lung cta abd s/nt ext no edema brace Vital Signs Date Time Temp Pulse Resp B/P Pulse Ox O2 Delivery O2 Flow Rate FiO2 09/07/16 11:05 98 21 09/07/16 08:00 96.9 96 19 146/77 99 09/07/16 00:00 97.0 101 20 141/63 97 09/06/16 20:05 97.6 111 16 144/75 97 09/06/16 16:30 98.1 123 18 178/85 97 09/06/16 16:15 97.4 114 16 159/79 95 Nasal Cannula 2 09/06/16 16:00 111 16 160/85 99 Nasal Cannula 2 09/06/16 15:45 110 16 175/77 98 Nasal Cannula 2 09/06/16 15:30 111 16 169/76 97 Nasal Cannula 2 09/06/16 15:15 110 16 169/75 97 Nasal Cannula 2 09/06/16 15:00 103 16 165/74 98 Nasal Cannula 2 09/06/16 14:45 105 16 156/71 98 Nasal Cannula 2 09/06/16 14:30 113 16 154/69 95 Nasal Cannula 2 09/06/16 14:25 98.0 106 16 157/69 95 Nasal Cannula 2 09/06/16 09/06/16 09/07/16 15:00 23:00 07:00 Intake Total 1240 ml 1000 ml 480 ml Output Total 850 ml 1050 ml Balance 390 ml -50 ml 480 ml Intake Oral 240 ml 600 ml 480 ml IV Total 400 ml Other 1000 ml Output Urine Total 1050 ml Estimated Blood Loss 50 ml Other 800 ml # Voids 2 # Bowel Movements 2 Result Diagram: 09/07/16 0700 09/07/16 0700 Imaging Last Impressions Chest X-Ray 09/05/16 1309 Signed Impressions: Service Date/Time: August 13:09 - CONCLUSION: No acute cardiopulmonary abnormality is identified. Galen Lance MD Lumbar Spine MRI 09/05/16 0000 Signed Impressions: Service Date/Time: August 15:13 - CONCLUSION: Degenerative disc changes seen at the level of L2/L3 and adjacent posterior extradural mass just posterior and closely adherent to the L2 vertebral body. Given the adjacent degenerative disc changes this may represent an area of focal extruded disc versus possible epidural hematoma or solid .Consider further evaluation of the lumbar spine with contrast to evaluate for mass enhancement. Carmen Wayne MD Abdomen X-Ray 09/05/16 0000 Signed Impressions: Service Date/Time: , September 05, 2016 14:27 - CONCLUSION: Cholelithiasis. Moderate stool burden. Otherwise unremarkable exam. Carmen Wayne MD A/P Problem List: (1) Intractable back pain Status: Acute Plan: - Pt admitted to the ED on 09/05/16 with intractable back pain with radiculopathy down the left leg x 8 days. This began after she lifted her leg to wash her knee in the shower. - Pt did note have improvement on [place], Flexeril, Oxycodone or Gabapentin - Outpt MRI of the lumbar spine (08/30/16) --> multilevel spondylosis and degenerative disk disease most severe at the L2 level where a large approximately 1.4 x 1.4cm sequestrated disk fragment is present lying posterior to the left side of the vertebral body in the left paracentral posterolateral left lateral recess region and is suggested to impact the left L2 nerve root int he lateral recess. - Patient was sent to Dr. Dee who reportedly sent the pt to the ED for admission and possible surgical intervention. - Repeat MRI Lumbar spine (09/05/16) --> Degenerative disc changes seen at the level of L2/L3 and adjacent posterior extradural mass just posterior and closely adherent to the L2 vertebral body. Given the adjacent degenerative disc changes this may represent an area of focal extruded disc versus possible epidural hematoma or solid - s/p L2-3 laminectomy 09/06 today on 09/07 pt oob and feeling great and wants to go home... d/c with f/u. pain meds and prn laxatives discussed (2) Radiculopathy, lumbar region Status: Acute Plan: - See above. (3) Constipation Status: Acute Plan: - Pt has been constipated and has not had a bowel movement since last Friday , 8 days ago. - Likely related to opioids and decreased mobility - KUB (09/05/16) --> Moderate stool burden - Stool softeners BID - Lactulose, pt refused yesterday because she was concerned about having a BM in the OR but is willing to take the laxative post-operative. (4) GERD (gastroesophageal reflux disease) Status: Chronic Plan: - PPI Elliot Doherty MD Sep 07, 2016 11:43
--- NOTE | 2016-09-07 11:44 | HHI.DCPOC ---
Discharge Care Plan Diagnosis: (1) Left-sided low back pain with left-sided sciatica (2) S/P lumbar laminectomy Goals to Promote Your Health * To prevent worsening of your condition and complications * To maintain your health at the optimal level Directions to Meet Your Goals Take your medications as prescribed Follow your dietary instruction Follow activity as directed Keep your appointments as scheduled Take your immunizations and boosters as scheduled If your symptoms worsen call your PCP, if no PCP go to Urgent Care Center or Emergency Room Smoking is Dangerous to Your Health. Avoid second hand smoke Call the 24-hour hour crisis hotline for domestic abuse at Elliot Doherty MD Sep 07, 2016 11:44
[2016-09-07] MEDS ORDERED: HYDR-3583 PO (11:46)
[2016-09-18] MEDS ORDERED: CYCL5TAB PO (12:32)
[2016-12-12] MEDS ORDERED: METH750T (09:19)
[2016-12-12] MEDS ORDERED: MELO-1 (09:19)
[2016-12-12] MEDS ORDERED: LUMBAR BACK BRA1 MIS (09:44)
== END 2016-09-07 14:32 | disposition home or self-care (01) | DRG 520 ==
LOC: NEPC 12:43 → NEDA 13:41 → UNDOADMOB 13:42 → NEDA 13:42 → OBSVTOIN 13:48 → NEPGCP 15:12 → NEDA 15:12 → N06B 09-06 12:34 → NEPGCP 09-06 12:34 → N06B 09-06 16:32 → UNDODISOB 09-07 14:32
PROVIDERS: ADMIT Hospitalist; ATTEND Hospitalist
PROC: 0ST20ZZ Resection of Lumbar Vertebral Disc, Open Approach (ICD-10-PCS; principal; 2016-09-06 12:08)
DX: M51.16 Intervertebral disc disorders with radiculopathy, lumbar region (principal); K21.9 Gastro-esophageal reflux disease without esophagitis; K59.00 Constipation, unspecified; M48.06 Spinal stenosis, lumbar region; M47.816 Spondylosis without myelopathy or radiculopathy, lumbar region; Z88.2 Allergy status to sulfonamides; Z88.8 Allergy status to other drugs, medicaments and biological substances
CPT/HCPCS: 71010; 72020; 72148; 74000; 76000; 80048; 80053; 83735; 85025; 85610; 85730; 93005; 99284; C9113; G8987-GP; G8988-GP; J0131; J0690; J1030; J1100; J1170; J1580; J1885; J2250; J2370; J2405; J2710; J3010; J3370; J3480; J7030; J7050

== ENCOUNTER 2016-09-19 18:00 | Emergency (ER) | payer MEDICARE ==
[~2016-09-19] VITALS: Ht 160 cm; Wt 70.0 kg
[~2016-09-19 18:00] MED LIST: CYCL5TAB PO; GABA300C5 PO; HYDR-3583 PO
[2016-09-19 18:03] VITALS: BP 181/90; PULSE 104; RESP 14; TEMP 98.1; O2SAT 96
--- NOTE | 2016-09-19 21:58 | PD ---
HPI Chief Complaint: Injury Time Seen by Provider: 21:30 Travel History International Travel<30 days: No Contact w/Intl Traveler<30days: No Traveled to known affect area: No History of Present Illness HPI Well-appearing 71-year-old woman, recently had back surgery and she had an IV in her right arm. She states that they trouble flushing the IV and had to be forcefully flush a couple times. She states since leaving she's had pain and tenderness at the IV site. She feels a firm knot where the vein is. She's not really had trouble like this before previous IVs. No other complaints. History Past Medical History Narrative Medical GERD Back problems Menopausal: Yes Social History Alcohol Use: No Tobacco Use: No Allergies-Medications (Allergen,Severity, Reaction): Coded Allergies: Sulfa (Verified Allergy, Severe, can't remember, 09/19/16) Lisinopril (Verified Allergy, Unknown, Nausea, Headache, 09/19/16) Reported Meds & Prescriptions Reported Meds & Active Scripts Active Flexeril (Cyclobenzaprine HCl) 5 Mg Tab 5 Mg PO TID Hydrocodone-Acetaminophen 10-325 mg Tab 1 Tab PO Q4H PRN Reported Gabapentin 300 Mg Cap 300 Mg PO HS Review of Systems Except as stated in HPI: all other systems reviewed are Neg Physical Exam Narrative GENERAL: Well-appearing 71-year-old woman, no acute distress. SKIN: Warm and dry. CARDIOVASCULAR: Warm and well perfused. RESPIRATORY: Normal rate and effort. MUSCULOSKELETAL: Tender firmness in the vein in the right arm, about 1-2 cm of the vein. No erythema redness. No other complaints. NEUROLOGICAL: Awake and alert. No gross deficits. Data Data Last Documented VS Vital Signs Date Time Temp Pulse Resp B/P Pulse Ox O2 Delivery O2 Flow Rate FiO2 09/19/16 21:14 Room Air 09/19/16 18:03 98.1 104 14 181/90 96 MDM Medical Decision Making Medical Screen Exam Complete: Yes Emergency Medical Condition: Yes Differential Diagnosis Thrombophlebitis, foreign body, DVT, other Narrative Course Medical decision making 79 year-old woman with tenderness over a peripheral vein in her arm or she had an IV site with a difficulty. I think she is a superficial, phlebitis. There is no inflammation redness or evidence of infection. I recommended just warm compresses and time. Diagnosis Primary Impression: Superficial thrombophlebitis Qualified Code: I80.8 - Superficial thrombophlebitis of right upper extremity Additional Instructions: Do warm compresses to the area several times daily. Return to the emergency department for any worsening swelling, pain, or redness. Follow-up with your primary doctor in 10-14 days if not improving. Med/Other Pt SpecificInfo: No Change to Meds Disposition: 01 DISCHARGE HOME Condition: Stable Howard Hernandez MD Sep 19, 2016 21:58
[2016-12-12] MEDS ORDERED: METH750T (09:19)
[2016-12-12] MEDS ORDERED: MELO-1 (09:19)
[2016-12-12] MEDS ORDERED: LUMBAR BACK BRA1 MIS (09:44)
== END 2016-09-19 22:46 | disposition home or self-care (01) ==
LOC: NEPC 18:00
DX: I80.8 Phlebitis and thrombophlebitis of other sites (principal); Z98.890 Other specified postprocedural states; Z87.19 Personal history of other diseases of the digestive system; Z87.39 Personal history of other diseases of the musculoskeletal system and connective tissue
CPT/HCPCS: 99283

== ENCOUNTER → 2016-12-12 | Outpatient (CLI) | payer MEDICARE ==
[~2016-12-12] MED LIST changes: +LUMBAR BACK BRA1 MIS; +MELO-1; +METH750T
== END ==
LOC: HORT 10:02
PROVIDERS: ATTEND Neurological Surgery
DX: M47.896 Other spondylosis, lumbar region (principal)
CPT/HCPCS: L0627